=== PATIENT | male | born 1940 | race Two or more races ===

== ENCOUNTER 2021-04-07 04:49 | Inpatient (IN) | payer OTHER ==
[~2021-04-07] VITALS: Ht 182.9 cm; Wt 101.4 kg
[2021-04-07 07:42] LABS: Basophils # (auto) 0 10 ^3/uL (0-0.2); Basophils % (auto) 0.2 % (0.0-2.0); Eosinophils # (auto) 0.1 10 ^3/uL (0-0.8); Eosinophils % (auto) 1.1 % (0.0-7.0); Hematocrit 34.5 % (41.0-53.0); Hemoglobin 11.3 g/dL (13.5-17.5); Lymphocytes # (auto) 0.9 10 ^3/uL (0.4-5.4); Lymphocytes % (auto) 9.2 % (10.0-50.0); Mean Corpuscular Hemoglobin 27.7 pg (28.0-32.0); Mean Corpuscular Hgb Conc. 32.8 g/dL (32.0-36.0); Mean Corpuscular Volume 84.4 fL (80.0-100.0); Monocytes # (auto) 0.8 10 ^3/uL (0-1.3); Monocytes % (auto) 8.4 % (0.0-12.0); Neutrophils # (auto) 7.6 10 ^3/uL (1.6-8.6); Neutrophils % (auto) 81.1 % (37.0-80.0); Red Blood Cells 4.09 10^6/uL (4.5-5.90); Red Cell Distribution Width 16.1 % (11.8-14.3); White Blood Cell 9.4 10^3/uL (4.4-10.8)
[2021-04-07 07:57] LABS: INR 1.01 (0.9-1.15); Partial Thromboplastin Time 27.7 sec (23.6-33.0)
[2021-04-07 08:03] LABS: Albumin 3.3 g/dL (3.4-5.0); Calcium 9.2 mg/dL (8.5-10.1); Magnesium 2.5 mg/dL (1.6-2.6); Potassium 5.3 mmol/L (3.5-5.1)
[2021-04-07 08:09] LABS: BUN/Creatinine Ratio 9.1; Bilirubin, Total 0.4 mg/dL (0.2-1.0); Total Protein 6.7 g/dL (6.4-8.2)
[2021-04-07] MEDS ORDERED: InsuLIN REG 1unit/0.01ml Soln (100units/ml) IV ONE ×2 (09:15→13:45)
[2021-04-07] MEDS ORDERED: DEXTROSE (50%) 50ML SYRG IV ONE ×2 (09:15→13:45)
[2021-04-07] MEDS ORDERED: SODIUM ZIRCONIUM CYCL 10 GM PAK PO ONE ×2 (09:15→13:45)
[2021-04-07] MEDS ORDERED: ALBUTEROL SULF 2.5 MG/0.5ML(0.5%) NEB SOLN NEB ONE (09:15)
[2021-04-07] MEDS ORDERED: CALCIUM GLUC 1,000mg/50ml-NS 50 ML IV ONE (09:15)
[2021-04-07] MEDS ORDERED: FUROSEMIDE 20 MG/2 ML VIAL IV ONE (09:15)
[2021-04-07 11:46] LABS: Urine Bacteria NONE SEEN /hpf (None Seen); Urine Blood Negative /uL (Negative); Urine WBC <1 /hpf (0 - 3)
[2021-04-07] MEDS ORDERED: ONDANSETRON HCL 4 MG/2 ML VIAL IV ONE (12:45)
[2021-04-07] MEDS ORDERED: CALCIUM CHL 100MG/ML 1,000 MG in D5W 5% 100 ML IV ONE (13:45)
[2021-04-07] MEDS ORDERED: FUROSEMIDE 40 MG/4 ML VIAL IV ONE (13:45)
[2021-04-07] MEDS ORDERED: DEXTROSE (50%) 50ML SYRG IV PRN ×2 (13:45→16:00)
[2021-04-07] MEDS ORDERED: MORPHINE SULFATE INJECTION 2 MG/ML SYRG IV PRN ×3 (13:45→16:15)
[2021-04-07] MEDS ORDERED: NITROGLYCERIN 0.4 MG SL TAB SL PRN ×2 (13:45→16:15)
[2021-04-07] MEDS ORDERED: SODIUM BICARBONATE 8.4% INJ 50ML SYRINGE IV ONE (13:45)
[2021-04-07 15:07] LABS: Cholesterol 68 mg/dL (< 200)
[2021-04-07 15:10] LABS: HDL Cholesterol 30 mg/dL (40-59); LDL Cholesterol 30 mg/dL (< 100); Triglycerides 80 mg/dL (< 150)
[2021-04-07] MEDS ORDERED: ASPirin 81 mg TAB PO ONE (16:00)
[2021-04-07] MEDS ORDERED: ATORVASTATIN 20 MG TAB PO ONE (16:00)
[2021-04-07] MEDS ORDERED: ISOSORBIDE MONONITRATE ER 60 MG TAB PO ONE (16:00)
[2021-04-07] MEDS ORDERED: hydrALAZINE HCL 20 MG/ML VL IV PRN (16:00)
[2021-04-07] MEDS ORDERED: PANCREATIC ENZYMES 4200 UNIT CAP PO ONE (16:00)
[2021-04-07] MEDS ORDERED: METOPROLOL SUCCINATE XL 50 MG TAB PO ONE (16:00)
[2021-04-07] MEDS ORDERED: DOCUSATE SOD 100 MG CAP PO PRN (16:15)
[2021-04-07] MEDS ORDERED: DOXYCYCLINE 100MG/250ML 250 ML IV ONE (16:15)
[2021-04-07] MEDS ORDERED: METOCLOPRAMIDE HCL 5MG/ml INJ 2ml VIAL IV PRN (16:15)
[2021-04-07] MEDS ORDERED: ACETAMINOPHEN 325 MG TAB PO PRN (16:15)
[2021-04-07] MEDS ORDERED: HYDROcodone-ACET 5/325MG TAB PO PRN (16:15)
[2021-04-07] MEDS ORDERED: ALUM & MAG HYDROX-SIMETH LIQ(MAALOX) 30 ML PO PRN (16:15)
[2021-04-07] MEDS ORDERED: BACITRACIN TOP OINT 1 UD PKG TOP ONE (16:15)
[2021-04-07] MEDS ORDERED: LORazepam 0.5 MG TAB PO PRN (16:15)
[2021-04-07] MEDS ORDERED: IPRATROPIUM BROM 0.5 MG/2.5ML INH SOL NEB ONE (16:15)
[2021-04-07] MEDS ORDERED: ENOXAPARIN SOD 40 MG/0.4 ML SYRINGE SC ONE (16:30)
[2021-04-07] MEDS ORDERED: ACCU-CHEK COMFORT CURVE STRIP VI SCH (17:00)
[2021-04-07] MEDS: DOXYCYCLINE 100MG/250ML 250 ML IV SCH (17:00)
[2021-04-07] MEDS ORDERED: InsuLIN REG 1unit/0.01ml Soln (100units/ml) SC SCH (17:00)
[2021-04-07] MEDS ORDERED: IOHEXOL 350 MG/ML 100ML IJ ONE (17:10)
[2021-04-07] MEDS: InsuLIN REG 1unit/0.01ml Soln (100units/ml) SC SCH ×2 (17:13→23:15)
[2021-04-07] MEDS: ACCU-CHEK COMFORT CURVE STRIP VI SCH ×2 (17:13→23:20)
[2021-04-07] MEDS ORDERED: NICOTINE 14 MG/24HR TOPICAL PATCH TD ONE (17:15)
[2021-04-07 17:26] LABS: Alcohol, Urine < 3.0 mg/dL (0-10); Amphetamine Screen, Urine NEGATIVE (NEGATIVE); Barbiturate Scree,Urine NEGATIVE (NEGATIVE); Benzodiazephine Screen, Urine NEGATIVE (NEGATIVE); Cannabinoid Screen, Urine NEGATIVE (NEGATIVE); Cocaine Screen, Urine NEGATIVE (NEGATIVE); Opiate Scree,Urine POSITIVE (NEGATIVE); Phencyclidine Screen, Urine NEGATIVE (NEGATIVE)
[2021-04-07] MEDS: IPRATROPIUM BROM 0.5 MG/2.5ML INH SOL NEB SCH ×2 (18:00→23:06)
[2021-04-07] MEDS: FUROSEMIDE 20 MG/2 ML VIAL IV SCH (18:34)
[2021-04-07] MEDS: PANCREATIC ENZYMES 4200 UNIT CAP PO SCH (18:43)
[2021-04-07] MEDS: TAMSULOSIN HYDROCHLORIDE 0.4 MG CAP PO SCH (18:43)
[2021-04-07] MEDS ORDERED: LORazepam 2MG/ML-1ML VIAL IV PRN (20:45)
[2021-04-07 22:00] VITALS: BP 84/51
[2021-04-07] MEDS: NORTRIPTYLINE HCL 25 MG CAP PO SCH (22:00)
[2021-04-07] MEDS ORDERED: hydrALAZINE HCL 25 MG TAB PO SCH (22:00)
[2021-04-08] MEDS: IPRATROPIUM BROM 0.5 MG/2.5ML INH SOL NEB SCH ×6 (02:00→22:21)
[2021-04-08] MEDS: BACITRACIN TOP OINT 1 UD PKG TOP SCH ×3 (04:09→21:54)
[2021-04-08] MEDS: DOXYCYCLINE 100MG/250ML 250 ML IV SCH ×2 (04:09→15:56)
[2021-04-08] MEDS: FUROSEMIDE 20 MG/2 ML VIAL IV SCH ×2 (05:33→18:11)
[2021-04-08 06:41] LABS: Basophils # (auto) 0 10 ^3/uL (0-0.2); Basophils % (auto) 0.1 % (0.0-2.0); Eosinophils # (auto) 0 10 ^3/uL (0-0.8); Eosinophils % (auto) 0.5 % (0.0-7.0); Hematocrit 29.3 % (41.0-53.0); Hemoglobin 9.8 g/dL (13.5-17.5); INR 1.05 (0.9-1.15); Lymphocytes # (auto) 0.9 10 ^3/uL (0.4-5.4); Mean Corpuscular Hemoglobin 27.9 pg (28.0-32.0); Mean Corpuscular Hgb Conc. 33.3 g/dL (32.0-36.0); Mean Corpuscular Volume 83.8 fL (80.0-100.0); Monocytes # (auto) 0.6 10 ^3/uL (0-1.3); Monocytes % (auto) 8.2 % (0.0-12.0); Neutrophils # (auto) 6.4 10 ^3/uL (1.6-8.6); Neutrophils % (auto) 80.2 % (37.0-80.0); Nucleated Red Blood Cells % 0.1 %; Partial Thromboplastin Time 29.3 sec (23.6-33.0); White Blood Cell 7.9 10^3/uL (4.4-10.8)
[2021-04-08] MEDS ORDERED: FIN5T PO (06:44)
[2021-04-08] MEDS: InsuLIN REG 1unit/0.01ml Soln (100units/ml) SC SCH ×4 (06:46→21:46)
[2021-04-08] MEDS: ACCU-CHEK COMFORT CURVE STRIP VI SCH ×4 (06:47→21:44)
[2021-04-08 06:48] LABS: Albumin 2.9 g/dL (3.4-5.0); Calcium 8.6 mg/dL (8.5-10.1); Potassium 4.3 mmol/L (3.5-5.1); Uric Acid 4.6 mg/dL (3.5-7.2)
[2021-04-08 06:53] LABS: BUN/Creatinine Ratio 9.9; Bilirubin, Total 0.5 mg/dL (0.2-1.0); Phosphorus 2.8 mg/dL (2.5-4.90); Total Protein 6.1 g/dL (6.4-8.2)
[2021-04-08 08:00] VITALS: BP_SYST 108; BP_SYST 130; BP_DIAS 64; BP_DIAS 67
[2021-04-08] MEDS: PANCREATIC ENZYMES 4200 UNIT CAP PO SCH ×3 (08:00→18:00)
[2021-04-08] MEDS ORDERED: ACETYLCYSTEINE ORAL for CIN 20%(200MG/ML) 4ML PO ONE (09:00)
[2021-04-08] MEDS ORDERED: LORazepam 2MG/ML-1ML VIAL IV PRN (09:00)
[2021-04-08] MEDS ORDERED: SODIUM CHLORIDE 0.9% 500 ML IV ONE (09:15)
[2021-04-08] MEDS ORDERED: ISOSORBIDE MONONITRATE ER 60 MG TAB PO SCH (10:00)
[2021-04-08] MEDS: FINASTERIDE 5 MG TAB PO SCH (10:00)
[2021-04-08] MEDS ORDERED: ASPirin 81 mg TAB PO SCH (10:00)
[2021-04-08] MEDS: NICOTINE 14 MG/24HR TOPICAL PATCH TD SCH (10:00)
[2021-04-08] MEDS: FLUoxetine HCL 20 MG CAP PO SCH (10:00)
[2021-04-08] MEDS ORDERED: METOPROLOL SUCCINATE XL 50 MG TAB PO SCH (10:00)
[2021-04-08] MEDS: NORTRIPTYLINE HCL 25 MG CAP PO SCH ×2 (10:00→21:49)
[2021-04-08] MEDS: CLOPIDOGREL BISULFATE 75 MG TAB PO SCH (10:00)
[2021-04-08] MEDS ORDERED: ENOXAPARIN SOD 40 MG/0.4 ML SYRINGE SC SCH (10:00)
[2021-04-08 12:00] VITALS: BP 108/64
[2021-04-08 16:37] VITALS: BP 114/75
[2021-04-08] MEDS: TAMSULOSIN HYDROCHLORIDE 0.4 MG CAP PO SCH (18:11)
[2021-04-08] MEDS: ATORVASTATIN 20 MG TAB PO SCH (21:50)
[2021-04-08] MEDS: METOPROLOL TARTRATE 25 MG TAB PO SCH (21:50)
[2021-04-08 22:00] VITALS: BP 121/81
[2021-04-08] MEDS: ACETYLCYSTEINE ORAL for CIN 20%(200MG/ML) 4ML PO SCH (22:00)
[2021-04-08] MEDS ORDERED: ATORVASTATIN 20 MG TAB PO SCH (22:00)
[2021-04-09] MEDS: IPRATROPIUM BROM 0.5 MG/2.5ML INH SOL NEB SCH ×4 (02:00→10:05)
[2021-04-09 04:00] VITALS: BP 148/73
[2021-04-09] MEDS: DOXYCYCLINE 100MG/250ML 250 ML IV SCH ×2 (04:08→15:44)
[2021-04-09] MEDS: InsuLIN REG 1unit/0.01ml Soln (100units/ml) SC SCH ×4 (06:26→22:06)
[2021-04-09] MEDS: ACCU-CHEK COMFORT CURVE STRIP VI SCH ×4 (06:26→21:56)
[2021-04-09 07:22] LABS: Basophils # (auto) 0 10 ^3/uL (0-0.2); Basophils % (auto) 0.4 % (0.0-2.0); Eosinophils # (auto) 0.1 10 ^3/uL (0-0.8); Eosinophils % (auto) 1.5 % (0.0-7.0); Hematocrit 32.3 % (41.0-53.0); Hemoglobin 10.7 g/dL (13.5-17.5); Lymphocytes % (auto) 13.1 % (10.0-50.0); Mean Corpuscular Hemoglobin 27.9 pg (28.0-32.0); Mean Corpuscular Volume 84.3 fL (80.0-100.0); Monocytes # (auto) 0.8 10 ^3/uL (0-1.3); Monocytes % (auto) 10.1 % (0.0-12.0); Neutrophils # (auto) 5.9 10 ^3/uL (1.6-8.6); Neutrophils % (auto) 74.9 % (37.0-80.0); Nucleated Red Blood Cells % 0.1 %; Red Blood Cells 3.83 10^6/uL (4.5-5.90); Red Cell Distribution Width 15.9 % (11.8-14.3); White Blood Cell 7.8 10^3/uL (4.4-10.8)
[2021-04-09] MEDS: FUROSEMIDE 20 MG/2 ML VIAL IV SCH ×2 (07:26→17:26)
[2021-04-09 07:38] LABS: INR 1.08 (0.9-1.15)
[2021-04-09 07:41] LABS: Potassium 4.8 mmol/L (3.5-5.1)
[2021-04-09 07:54] LABS: Calcium 8.8 mg/dL (8.5-10.1)
[2021-04-09 07:59] LABS: BUN/Creatinine Ratio 11.3
[2021-04-09 08:00] VITALS: BP 119/55
[2021-04-09] MEDS: PANCREATIC ENZYMES 4200 UNIT CAP PO SCH ×3 (08:00→17:26)
[2021-04-09 09:00] VITALS: BP 119/55
[2021-04-09] MEDS ORDERED: LIDOCAINE 2%HCL (LOCAL ANESTH.) INJ 20ML MDV ONE (09:42)
[2021-04-09] MEDS ORDERED: ANGIOMAX 250 MG VIAL IV ONE ×2 (09:47→11:00)
[2021-04-09] MEDS ORDERED: HEPARIN SODIUM (PORCINE) 5000 UNITS/ML 1ML VIAL ONE (09:47)
[2021-04-09] MEDS ORDERED: fentaNYL CITRATE 100 MCG/2 ML VL ONE (09:47)
[2021-04-09] MEDS ORDERED: VERAPAMIL 2.5MG/ML INJ 2ML VIAL IV ONE (09:47)
[2021-04-09] MEDS ORDERED: SODIUM CHL 0.9% 50 ML ONE ×2 (09:48→11:00)
[2021-04-09] MEDS ORDERED: MIDAZOLAM HCL 2MG/2ML 2ml VIAL (1mg/ml) ONE ×2 (09:48→11:45)
[2021-04-09] MEDS: NORTRIPTYLINE HCL 25 MG CAP PO SCH ×2 (10:00→22:07)
[2021-04-09] MEDS: CLOPIDOGREL BISULFATE 75 MG TAB PO SCH (10:00)
[2021-04-09] MEDS: METOPROLOL TARTRATE 25 MG TAB PO SCH ×2 (10:00→22:45)
[2021-04-09] MEDS ORDERED: IODIXANOL 320MG/ML 100ML BTL IV ONE ×2 (10:13→10:39)
[2021-04-09] MEDS ORDERED: ATROPINE SULF 1 MG/10ml SYR ONE (11:03)
[2021-04-09] MEDS ORDERED: CLOPIDOGREL BISULFATE 75 MG TAB ONE (11:53)
[2021-04-09] MEDS ORDERED: ASPirin 81 mg TAB PO ONE (13:15)
[2021-04-09] MEDS: FLUoxetine HCL 20 MG CAP PO SCH (13:46)
[2021-04-09] MEDS: FINASTERIDE 5 MG TAB PO SCH (13:46)
[2021-04-09] MEDS: NICOTINE 14 MG/24HR TOPICAL PATCH TD SCH (13:47)
[2021-04-09] MEDS: ACETYLCYSTEINE ORAL for CIN 20%(200MG/ML) 4ML PO SCH ×2 (13:47→22:07)
[2021-04-09] MEDS: BACITRACIN TOP OINT 1 UD PKG TOP SCH ×2 (13:55→22:20)
[2021-04-09] MEDS: SODIUM CHLOR 0.9% PF (SALINE LOCK) 10ML VIAL/SYR IV SCH ×2 (13:55→22:07)
[2021-04-09 15:46] VITALS: BP 111/72
[2021-04-09] MEDS: TAMSULOSIN HYDROCHLORIDE 0.4 MG CAP PO SCH (17:26)
[2021-04-09 22:00] VITALS: BP 95/56
[2021-04-09] MEDS ORDERED: IPRATROPIUM BROM 0.5 MG/2.5ML INH SOL NEB PRN (22:00)
[2021-04-09] MEDS: ATORVASTATIN 20 MG TAB PO SCH (22:07)
[2021-04-10] MEDS: DOXYCYCLINE 100MG/250ML 250 ML IV SCH (04:17)
[2021-04-10 05:00] VITALS: BP 94/54
[2021-04-10] MEDS: FUROSEMIDE 20 MG/2 ML VIAL IV SCH ×2 (05:25→17:44)
[2021-04-10] MEDS: SODIUM CHLOR 0.9% PF (SALINE LOCK) 10ML VIAL/SYR IV SCH ×2 (05:25→17:39)
[2021-04-10] MEDS: ACCU-CHEK COMFORT CURVE STRIP VI SCH ×3 (06:15→17:39)
[2021-04-10] MEDS: InsuLIN REG 1unit/0.01ml Soln (100units/ml) SC SCH ×3 (06:15→17:41)
[2021-04-10 09:00] VITALS: BP 94/68
[2021-04-10 09:05] LABS: BUN/Creatinine Ratio 12.6; Calcium 8.6 mg/dL (8.5-10.1); Magnesium 2.4 mg/dL (1.6-2.6)
[2021-04-10] MEDS: PANCREATIC ENZYMES 4200 UNIT CAP PO SCH ×3 (09:20→17:44)
[2021-04-10] MEDS: FLUoxetine HCL 20 MG CAP PO SCH (09:21)
[2021-04-10] MEDS: FINASTERIDE 5 MG TAB PO SCH (09:21)
[2021-04-10] MEDS: NORTRIPTYLINE HCL 25 MG CAP PO SCH (09:21)
[2021-04-10] MEDS: CLOPIDOGREL BISULFATE 75 MG TAB PO SCH (09:21)
[2021-04-10] MEDS: NICOTINE 14 MG/24HR TOPICAL PATCH TD SCH (09:22)
[2021-04-10] MEDS: METOPROLOL TARTRATE 25 MG TAB PO SCH (09:22)
[2021-04-10] MEDS ORDERED: DOXYCYCLINE 100 MG TAB/CAP PO SCH (10:00)
[2021-04-10] MEDS ORDERED: ASPirin 81 mg TAB PO SCH (10:00)
[2021-04-10 13:00] VITALS: BP 83/59
[2021-04-10] MEDS ORDERED: IOHEXOL 350 MG/ML 100ML IJ ONE (15:03)
[2021-04-10 17:00] VITALS: BP 90/64
[2021-04-10] MEDS: TAMSULOSIN HYDROCHLORIDE 0.4 MG CAP PO SCH (17:44)
[2021-04-10] MEDS: BACITRACIN TOP OINT 1 UD PKG TOP SCH (18:57)
[2021-04-10 20:02] VITALS: BP 90/64
== END 2021-04-10 21:15 | disposition home or self-care (01) | DRG 246 ==
LOC: EDBD 04:49 → ER 04:49 → TELE 13:35 → TELE-CENTR 21:45
PROVIDERS: ADMIT Hospitalist; ATTEND Internal Medicine Geriatric Medicine
PROC: 027236Z Dilation of Coronary Artery, Three Arteries with Three Drug-eluting Intraluminal Devices, Percutaneous Approach (ICD-10-PCS; principal; 2021-04-07)
PROC: 02C03Z7 Extirpation of Matter from Coronary Artery, One Artery, Orbital Atherectomy Technique, Percutaneous Approach (ICD-10-PCS; 2021-04-09)
PROC: B240ZZ3 Ultrasonography of Single Coronary Artery, Intravascular (ICD-10-PCS; 2021-04-09)
PROC: 4A023N7 Measurement of Cardiac Sampling and Pressure, Left Heart, Percutaneous Approach (ICD-10-PCS; 2021-04-09)
PROC: B211YZZ Fluoroscopy of Multiple Coronary Arteries using Other Contrast (ICD-10-PCS; 2021-04-09)
PROC: B215YZZ Fluoroscopy of Left Heart using Other Contrast (ICD-10-PCS; 2021-04-09)
DX: I21.4 Non-ST elevation (NSTEMI) myocardial infarction (principal); N17.0 Acute kidney failure with tubular necrosis; I50.21 Acute systolic (congestive) heart failure; E44.1 Mild protein-calorie malnutrition; I47.1 Supraventricular tachycardia; I13.0 Hypertensive heart and chronic kidney disease with heart failure and stage 1 through stage 4 chronic kidney disease, or unspecified chronic kidney disease; S09.90XA Unspecified injury of head, initial encounter; I48.0 Paroxysmal atrial fibrillation; E66.01 Morbid (severe) obesity due to excess calories; N18.31 Chronic kidney disease, stage 3a; S51.011A Laceration without foreign body of right elbow, initial encounter; D63.8 Anemia in other chronic diseases classified elsewhere; F32.9 Major depressive disorder, single episode, unspecified; F41.9 Anxiety disorder, unspecified; E87.5 Hyperkalemia; I65.23 Occlusion and stenosis of bilateral carotid arteries; J20.9 Acute bronchitis, unspecified; E11.40 Type 2 diabetes mellitus with diabetic neuropathy, unspecified; W18.39XA Other fall on same level, initial encounter; Y93.89 Activity, other specified; Y92.89 Other specified places as the place of occurrence of the external cause; Y99.8 Other external cause status; E11.22 Type 2 diabetes mellitus with diabetic chronic kidney disease; E78.5 Hyperlipidemia, unspecified; E11.21 Type 2 diabetes mellitus with diabetic nephropathy; F17.210 Nicotine dependence, cigarettes, uncomplicated; I25.10 Atherosclerotic heart disease of native coronary artery without angina pectoris; N40.0 Benign prostatic hyperplasia without lower urinary tract symptoms; Z79.4 Long term (current) use of insulin; Z79.82 Long term (current) use of aspirin; Z79.899 Other long term (current) drug therapy; Z82.49 Family history of ischemic heart disease and other diseases of the circulatory system; Z98.61 Coronary angioplasty status; Z90.49 Acquired absence of other specified parts of digestive tract; Z71.6 Tobacco abuse counseling; Z68.30 Body mass index [BMI] 30.0-30.9, adult; E11.65 Type 2 diabetes mellitus with hyperglycemia; Z20.822 Contact with and (suspected) exposure to COVID-19
CPT/HCPCS: 36415; 37252; 70450; 70496; 70498; 70551; 71045; 73080; 80048; 80053; 80061; 80307; 81001; 82306; 82565; 82962; 83036; 83735; 83880; 84100; 84132; 84443; 84484; 84520; 84550; 85025; 85379; 85610; 85730; 87040; 87086; 87426; 92933; 92978; 93005; 93306; 93458; 93886; 94640; 95819; 96365; 96375; 97163; 99152; 99153; C1724; C1769; C1874; C1887; G0378; J1815; J2250; J2405; J3490; J7060; Q9967